=== PATIENT | male | born 2000 | race Caucasian/White ===

== ENCOUNTER 2024-10-01 11:40 | Emergency (ER) | payer BC, SELFPAY ==
[2024-10-01 11:58] LABS: Urine Albumin 1+ (Neg - Trace); Urine Bilirubin Negative (Negative); Urine Character Clear (Clear); Urine Color Yellow; Urine Glucose Negative (Negative); Urine Ketone Negative (Negative); Urine Leukocyte Negative (Negative); Urine Nitrite Negative (Negative); Urine Occult Blood 4+ (Negative); Urine Specific Gravity 1.025 (<1.030); Urine Urobilinogen Negative (Neg - 1+)
[2024-10-01 12:49] LABS: Urine Red Blood Cell 50-60 /HPF (0-2)
[2024-10-01 12:50] LABS: Urine Bacteria Few (Negative); Urine White Cell 0-2 /HPF (0-5)
[2024-10-01] MEDS: TORADOL 30 MG IV (13:10)
[2024-10-01 13:14] VITALS: BP 107/83
[2024-10-01 13:25] LABS: % Basophils 0.3 % (0-2); % Eosinophils 0.1 % (0-6); % Immature Granulocytes 0.3 % (0-0.5); % Lymphocytes 7.1 % (20.5-51.1); % Monocytes 3.6 % (1.7-9.3); % Neutrophils 88.6 % (42.2-75.2); Absolute Lymphocytes 0.7 10^3/uL (1.2-3.4); Absolute Monocytes 0.4 10^3/uL (0.1-0.6); Absolute Neutrophils 9.1 10^3/uL (1.4-6.5); Hematocrit 46.6 % (39.0-52.0); Mean Corp Hgb Conc. 34.3 g/dL (33.0-37.0); Mean Corpuscular Hgb 28.9 pg (27.0-31.0); Mean Corpuscular Volume 84.3 fL (80.0-94.0); Mean Platelet Volume 10.5 fL (7.4-10.4); Nucleated Red Blood Cells % 0 % (-); Platelet Count 225 10^3/uL (130-400); Red Blood Cell Count 5.53 10^6/uL (4.70-6.10); Red Cell Dist. Width 12.8 % (11.5-14.5); White Blood Cell Count 10.2 10^3/uL (4.8-10.8)
[2024-10-01 13:33] LABS: ALT (SGPT) 39 U/L (0-50); AST (SGOT) 30 U/L (17-59); Alkaline Phosphatase 63 U/L (38-126); Blood Urea Nitrogen 11 mg/dl (9-20); Calcium 9.5 mg/dl (8.4-10.2); Carbon Dioxide 25 mmol/L (22-30); Chloride 108 mmol/L (98-107); Glucose 139 mg/dl (70-99); Sodium 143 mmol/L (135-145); Total Bilirubin 0.8 mg/dl (0.2-1.3); Total Protein 7.8 g/dl (6.3-8.2); eGFR > 60.00
[2024-10-01] MEDS: NSS 1000 IV (13:58)
[2024-10-01 14:00] VITALS: BP 107/63
--- NOTE | 2024-10-01 14:35 | ED.GENMED ---
History of Present Illness
General
Chief Complaint: Abdominal Pain
Source: patient
Exam Limitations: none
Time Seen by Provider: 10/01/24 12:33
Nursing documentation reviewed up to this point in time: agreed with
History of Present Illness
History of Present Illness:
pt is a 24 y/o M
no sig pmh
says about 1030 am he started having L lower quad pain that came on spontaneously
nonradiating to back, mabye slightly to L groin
uncomfortable, couldn't get comfortable
nothing taken for pain
feels urgency and pressure to urinate without pain with urination
no fever/chills, nausea, vomiting, diarrhea
neve rhad kidney stone
nothing taken at home for pain
Past History
Past History
ED Past Medical History: None
ED Past Surgical History: None
Social History
Tobacco: Non-smoker
Alcohol: None
Review of Systems
Review of Systems
Allergies reviewed?: Yes
All Other Systems: Not applicable
Phy Exam
Physical Exam
Physical Exam:
GENERAL: Alert, uncomfortable
Neck: supple
CARDIAC: Regular rate and rhythm .
LUNGS: Clear breath sounds bilaterally, no acute respiratory distress, no wheezes/rales/rhonchi
ABDOMEN: Soft, normal bowel sounds, nondistended, no abd tenderness, no guarding, no rebound, neg pandey's
: normal inspection of region
nontender testicles b/l
no rashes
NEUROLOGICAL: Alert and oriented, no focal neuro deficits
SKIN: Warm and dry, skin intact.
PSYCH: Normal and appropriate interaction.
Course
Orders/Labs/Results
Orders:
Orders
10/01/24 11:50
Urinalysis Reflex To Culture Urgent
Date Specimen was Collected: 10/01/24
Time Specimen was Collected: 11:45
Urine Microscopic Reflex Cult Urgent
10/01/24 13:03
Ketorolac [Toradol] 30 mg IV NOW STA
10/01/24 13:10
CMP [Comprehensive Metabolic Panel] Urgent
Complete Blood Count/With Diff Urgent
10/01/24 13:25
0.9% Sodium Chloride 1000 ml [Nss] 1,000 ml IV BOLUS
HYDROmorphone [Dilaudid] 0.5 mg IV NOW STA
10/01/24 16:09
CR Abdomen - 1 View Urgent
Comment:
Reason For Exam: KIDNEY STONE (PASSED IN ED) EVAL FOR MORE
Abnormal Lab Results
10/01/24 10/01/24
11:50 13:10
MPV 10.5 H fL
(7.4-10.4)
Absolute Neuts (auto) 9.1 H 10^3/uL
(1.4-6.5)
Absolute Lymphs (auto) 0.7 L 10^3/uL
(1.2-3.4)
Neutrophils % 88.6 H %
(42.2-75.2)
Lymphocytes % 7.1 L %
(20.5-51.1)
Chloride 108 H mmol/L
(98-107)
Glucose 139 H mg/dl
(70-99)
Ur Occult Blood Reflex 4+ A
(Negative)
Urine RBC 50-60 A /HPF
(0-2)
Urine Bacteria (Reflex) Few A
(Negative)
Urine Albumin (Reflex) 1+ A
(Neg - Trace)
10/01/24 13:10
10/01/24 13:10
Vital Signs
Initial and Last Documented VS:
Initial Vital Signs
Temp Pulse Resp Pulse Ox
36.6 C 59 18 99
10/01/24 11:43 10/01/24 11:43 10/01/24 11:43 10/01/24 11:43
Last Documented Vital Signs
Temp Pulse Resp BP Pulse Ox
36.6 C 60 16 117/63 99
10/01/24 11:43 10/01/24 15:30 10/01/24 13:18 10/01/24 15:00 10/01/24 15:46
MDM/Problems Addressed
Differential Diagnosis Includes:
kidney stone, uti
MDM/Problems Addressed:
24 y/o M
LLQ pain x 2-3 hours, colicky, uncomfrotable
some urgency
no h/o kidney stone
looks uncomfortable on exam evern after toradol
nontender abdomen
no hernia on exam
microscopic hematuria
awaiting stone search
there was a delay in CT
pt's pain resolved prior to dilaudid after toraodl
he was given strainer and urinated an da stone came out
he had no pain while in ED
xray shows no stones visible
d/c home
*Critical Care Note
Total Time (30-74mins, 75-104mins- exclusive of procedures): Not Applicable
ED Attending Note
-
Portions of this chart may have been created with voice recognition software.� Occasional wrong word or��sound alike� substitutions may have occurred due to the inherent limitations of voice recognition software.
Discharge Plan
Departure
Patient Disposition: Home (Routine Discharge)
Date of Disposition: 10/01/24
Time of Disposition: 16:45
Patient with high blood pressure during this ER visit?: No
Condition: Fair
Covid-19: Not Applicable
Discharge Problem:
Kidney stone
Instructions: Kidney Stones (DC)
Referrals:
Russel Grant MD [Active] - Follow up in 5-7 days
Luke Pringle CRNP [Family Provider] -
Activity Restrictions/Additional Instructions:
YOU PASSED A KIDNEY STONE WHILE YOU WERE HERE
YOU CAN FOLLOW UP WITH A UROLOGIST NEEDED
TAKE MOTRIN EVERY 8 HOURS NEEDED FOR PAIN
TYLENOL IF YOU ALSO HAVE PAIN IS OK
DRINK FLUIDS TO STAY HYDRATED
RETURN FOR : FEVER, RETURN OF PAIN, VOMITING, BURNING WITH URINATION OR NAY CONCERNS.
Interventions
Interventions:
*Risk Screen - Suicide Last Done: 10/01/24 11:43
*General Assessment Last Done: 10/01/24 11:43
*Neglect/Abuse Screening Last Done: 10/01/24 11:43
*ED- Fall Risk Assessment Last Done: 10/01/24 13:18
*ED COVID-19 Vaccine History Last Done: 10/01/24 13:18
ZD-Inpyvo-Gumvnffpwc Assessment Last Done: 10/01/24 13:18
Discharge Date and Time
Print Language: ANGUILLAN
[2024-10-01 15:00] VITALS: BP 117/63
== END 2024-10-01 17:36 | disposition home or self-care (01) ==
LOC: EMR 11:40
PROVIDERS: Emergency Medicine; Physician Assistant; EMERGENCY PHYSICIAN Emergency Medicine; FAMILY PHYSICIAN Registered Nurse
DX: N20.0 Calculus of kidney (principal)
CPT/HCPCS: 99283; 96374; 96375; 96361; 74018; 80053; 81003; 81015; 85025